=== PATIENT | female | born 1950 | race Caucasian/White ===

== ENCOUNTER 2016-05-09 07:10 | Day surgery (SDC) | payer OTHER ==
[~2016-05-09] VITALS: Ht 165.1 cm; Wt 59.0 kg
[~2016-05-09 07:10] MED LIST: CALTRATE 600 +1 EAC1 PO; CYANOCOBALAM1000 MCG PO; LATANOPROST2.5 ML BOTH EYES; LEVOTHYROXINE100 MCG PO; PROLIA60 MG/1 ML SC
[2016-05-09 07:47] VITALS: BP 118/72
[2016-05-09 11:10] VITALS: BP 108/66
[2016-05-09 12:07] VITALS: BP 107/67
== END 2016-05-09 12:30 | disposition home or self-care (01) ==
LOC: SDC 07:10
PROC: 07B50ZX Excision of Right Axillary Lymphatic, Open Approach, Diagnostic (ICD-10-PCS; principal; 2016-05-09)
DX: R59.1 Generalized enlarged lymph nodes (principal); E03.9 Hypothyroidism, unspecified; Z83.49 Family history of other endocrine, nutritional and metabolic diseases; Z82.3 Family history of stroke; Z88.0 Allergy status to penicillin
CPT/HCPCS: 88305; J1100; J2250; J2405; J3010; S0020